=== PATIENT | male | born 1965 | race Caucasian/White ===

== ENCOUNTER 2017-02-13 21:19 | Emergency (ER) | payer MEDICAID ==
[~2017-02-13 21:19] MED LIST: NOVOLOGMXP SQ
[2017-02-13 21:21] VITALS: BP 185/85; PULSE 86; RESP 16; TEMP 98.5; O2SAT 98
--- NOTE | 2017-02-13 22:52 | PD ---
HPI Chief Complaint: Foreign Body Time Seen by Provider: 22:43 Travel History International Travel<30 days: No Contact w/Intl Traveler<30days: No Traveled to known affect area: No History of Present Illness HPI 51-year-old white male presents to emergency Department with complaints of a possible foreign body in his right great toe. He states that approximate 6 days ago he had stepped on a piece of glass outside in bare feet. He had pulled the piece of glass out but now states that he feels that there may be retained foreign body. He states that he can feel something in his toe. The patient points to a callus on the plantar surface of his great toe. Up-to-date with immunizations. No fever chills. No drainage. No redness. He has not seen his doctor regarding this. PFSH Past Medical History Hx Anticoagulant Therapy: Yes (81 MG ASA) Cancer: No Cardiovascular Problems: No Diabetes: Yes Diminished Hearing: No Endocrine: No Genitourinary: No Hepatitis: No Hiatal Hernia: No Immune Disorder: No Musculoskeletal: No Neurologic: No Psychiatric: No Reproductive: No Respiratory: No Immunizations Current: Yes Thyroid Disease: No Tetanus Vaccination: < 5 Years Past Surgical History Body Medical Devices: CATHETER RIGHT NECK Eye Surgery: Yes (CATARACT BILAT., KENALOG INJ. BOTH EYES) Other Surgery: Yes (CRISTOPHER LASIK SURGERY OU, CATARACT ) Social History Alcohol Use: No Tobacco Use: No Substance Use: No Allergies-Medications (Allergen,Severity, Reaction): Coded Allergies: No Known Allergies (Unverified , 02/23/16) Reported Meds & Prescriptions Reported Meds & Active Scripts Active Reported Novolog Mix 70-30 Inj (Insulin Aspart Prota 70%/Aspart 30%) 1,000 Unit/10 Ml Vial 1 Units SQ BID PATIENT TAKES 10 UNITS IF BLOOD SUGAR IS ABOVE 130. PATIENT CHECKS BLOOD SUGAR am AND pm. Review of Systems General / Constitutional: No: Fever Eyes: No: Visual changes HENT: No: Headaches Cardiovascular: No: Chest Pain or Discomfort Respiratory: No: Shortness of Breath Gastrointestinal: No: Abdominal Pain Genitourinary: No: Dysuria Musculoskeletal: No: Pain Skin: No Rash Neurologic: No: Weakness Psychiatric: No: Depression Endocrine: No: Polydipsia Hematologic/Lymphatic: No: Easy Bruising Physical Exam Narrative GENERAL: This is a well-nourished, well-developed patient, in no apparent distress. SKIN: No rashes, ecchymoses or lesions. Warm and dry. HEAD: Atraumatic. Normocephalic. EYES: PERRL, EOMI, no discharge or injection. No scleral icterus. EARS: Clear NOSE: Nasal turbinates appear normal. THROAT: Mucosa pink and moist. Airway patent. NECK: Trachea midline. supple, moves head freely. LUNGS: Clear to auscultation. CV: Regular in rhythm. ABDOMEN: Soft nontender. EXT: No clubbing cyanosis or edema. Examination of the right foot reveals a callus to the plantar surface of the great toe as well as the medial aspect of the toe. I see no obvious foreign body. There is no erythema, warmth, edema or tenderness. He does have a callus to the plantar surface measuring approximately 3 x 3 mm. This is removed. Data Data Last Documented VS Vital Signs Date Time Temp Pulse Resp B/P (MAP) Pulse Ox O2 Delivery O2 Flow Rate FiO2 02/13/17 21:21 98.5 86 16 185/85 (118) 98 Orders Orders Toe (Min 2vws) (02/13/17 22:47) Ed Discharge Order (02/13/17 23:02) MDM Medical Decision Making Medical Screen Exam Complete: Yes Emergency Medical Condition: Yes Medical Record Reviewed: Yes Interpretation(s) Right great toe: Negative for foreign body. Positive calcifications consistent with diabetes Differential Diagnosis Differential diagnoses: Plantar wart, infection, foreign body Narrative Course The patient's callus has been removed. The sensation of foreign body has resolved according to the patient. We will perform an x-ray to confirm that there is no foreign body. He'll follow-up with his doctor next 2 days for recheck. There does not appear to be any infection. Puncture wound right great toe Diagnosis Primary Impression: puncture wound right great toe Patient Instructions: General Instructions Additional Instructions: Rest. Elevation. Daily wound care with soap, water, Neosporin. Always wear shoes. Follow-up with her doctor in the next 2 days for recheck. Return to the ER for any problems. Med/Other Pt SpecificInfo: Wound Care Disposition: 01 DISCHARGE HOME Condition: Stable Donnell Ramos Feb 13, 2017 22:52
--- NOTE | 2017-02-13 23:15 | RADRPT ---
EXAM DATE/TIME: 02/13/2017 22:50 [facility] COMPARISON: TOE RIGHT 1ST DIGIT(MIN 2VWS), June 22, 2014, 20:36. INDICATIONS : Right foot pain and discomfort. Patient states he may have glass in his first digit. MEDICAL HISTORY : None. SURGICAL HISTORY : None. ENCOUNTER: Initial ACUITY: 1 week PAIN SCORE: 1/10 LOCATION: Right foot, first digit. FINDINGS: Examination of the first digit of the right foot demonstrates no evidence of fracture or dislocation. No radiopaque foreign bodies are seen. The soft tissues are intact. No foreign body is identified. Prominent vascular calcification is present. CONCLUSION: 1. No foreign body is identified. Ken Do MD on February 13, 2017 at 23:12 Board Certified Radiologist. This report was verified electronically.
== END 2017-02-13 23:36 | disposition home or self-care (01) ==
LOC: NEPK 21:19
DX: S91.131A Puncture wound without foreign body of right great toe without damage to nail, initial encounter (principal); E11.9 Type 2 diabetes mellitus without complications; W25.XXXA Contact with sharp glass, initial encounter; Z79.4 Long term (current) use of insulin
CPT/HCPCS: 73660; 99283